=== PATIENT | female | born 1970 | race Two or more races ===

== ENCOUNTER 2022-06-18 06:56 | Day surgery (SDC) | payer MEDICAID ==
[2022-06-16 12:18] LABS: Basophils # (auto) 0 10 ^3/uL (0-0.2); Basophils % (auto) 0.8 % (0.0-2.0); Eosinophils # (auto) 0.1 10 ^3/uL (0-0.8); Eosinophils % (auto) 1.6 % (0.0-7.0); Hemoglobin 13.1 g/dL (12.2-16.2); Lymphocytes # (auto) 2.2 10 ^3/uL (0.4-5.4); Lymphocytes % (auto) 45.8 % (10.0-50.0); Mean Corpuscular Hemoglobin 33.6 pg (28.0-32.0); Mean Corpuscular Hgb Conc. 34.4 g/dL (32.0-36.0); Mean Corpuscular Volume 97.6 fL (80.0-100.0); Monocytes # (auto) 0.4 10 ^3/uL (0-1.3); Monocytes % (auto) 8.6 % (0.0-12.0); Neutrophils # (auto) 2.1 10 ^3/uL (1.6-8.6); Neutrophils % (auto) 43.2 % (37.0-80.0); Nucleated Red Blood Cells % 0.1 %; Red Blood Cells 3.89 10^6/uL (4.0-5.20); Red Cell Distribution Width 12.2 % (11.8-14.3); White Blood Cell 4.8 10^3/uL (4.4-10.8)
[2022-06-16 12:28] LABS: Urine Bacteria FEW /hpf (None Seen); Urine Blood Negative /uL (Negative); Urine Specific Gravity 1.007 (1.001-1.035); Urine WBC 44 /hpf (0 - 5)
[2022-06-16 12:44] LABS: INR 0.92 (0.9-1.15); Partial Thromboplastin Time 30.5 sec (24.6-33.4)
[2022-06-16 12:47] LABS: Albumin 3.7 g/dL (3.4-5.0); BUN/Creatinine Ratio 30.1 (10.0-20.0); Calcium 9.3 mg/dL (8.5-10.1); Potassium 4.1 mmol/L (3.5-5.1)
[2022-06-16 12:50] LABS: Bilirubin, Total 0.2 mg/dL (0.2-1.0); Total Protein 7.8 g/dL (6.4-8.2)
[~2022-06-18] VITALS: Ht 165.1 cm; Wt 80.3 kg
[~2022-06-18 06:56] MED LIST: HYDR50TA69 PO; LEVE100012 PO; MELA3TAB27 PO; OMEG1400 PO; PAR20T PO
[2022-06-18] MEDS ORDERED: ceFAZolin 1GM/50ML 100 ML IV ONE (07:56)
[2022-06-18] MEDS ORDERED: BUPIVACAINE 0.25% INJ 50ML VIAL ONE (08:04)
[2022-06-18] MEDS ORDERED: LIDOCAINE W/ EPINEPHRINE 1% 20ML VIAL ONE (08:04)
[2022-06-18] MEDS ORDERED: SUCCINYLCHOLINE CHLORIDE 20 MG/ML 10ML VIAL IV ONE (08:05)
[2022-06-18] MEDS ORDERED: ROCURONIUM 10MG/ML 10ML VIAL IV ONE (08:05)
[2022-06-18] MEDS ORDERED: MEPERIDINE HCL (25 MG/ML) 1ML VIAL ONE (08:13)
[2022-06-18] MEDS ORDERED: DexAMETHasone SOD PHOS 10MG/1ML VIAL INJ ONE (08:13)
[2022-06-18] MEDS ORDERED: NEOSTIGMINE 1 MG/ML INJ (10mg/10ML VIAL) ONE (08:13)
[2022-06-18] MEDS ORDERED: GLYCOPYRROLATE 0.2 MG/ML 1ML VIAL ONE (08:13)
[2022-06-18] MEDS ORDERED: MIDAZOLAM HCL 2MG/2ML 2ml VIAL (1mg/ml) ONE (08:13)
[2022-06-18] MEDS ORDERED: SODIUM CHLORIDE LOCK 10 ML ONE (08:13)
[2022-06-18] MEDS ORDERED: fentaNYL CITRATE 100 MCG/2 ML VL ONE (08:13)
[2022-06-18] MEDS ORDERED: ONDANSETRON HCL 4 MG/2 ML VIAL ONE (08:13)
[2022-06-18] MEDS ORDERED: HYDROmorphone HCL 2 MG/ML VL/or syr IV PRN ×2 (09:30)
[2022-06-18] MEDS ORDERED: MORPHINE SULFATE INJ 2 MG/ml SYRG IV PRN (09:30)
[2022-06-18] MEDS ORDERED: METOCLOPRAMIDE HCL 5MG/ml INJ 2ml VIAL IV PRN (09:30)
[2022-06-18 09:51] VITALS: BP 134/73
== END 2022-06-18 10:15 | disposition home or self-care (01) ==
LOC: SUR 06:56
PROVIDERS: ATTEND Surgery
DX: K42.0 Umbilical hernia with obstruction, without gangrene (principal); Z98.890 Other specified postprocedural states; Z20.822 Contact with and (suspected) exposure to COVID-19
CPT/HCPCS: 36415; 49592; 80053; 81001; 85025; 85610; 85730; 86850; 86900; 86901; J0330; J0690; J1100; J2175; J2250; J2405; J3010; J3490; Q4140; U0003